=== PATIENT | male | born 1960 | race Caucasian/White ===

== ENCOUNTER 2017-02-23 15:20 | Emergency (ER) | payer OTHER ==
[2017-02-23 15:39] VITALS: TEMP 98.2
--- NOTE | 2017-02-23 16:20 | CPEKG ---
Heart Rate: 60 RR Interval: 1000 P-R Interval: 200 QRSD Interval: 102 QT Interval: 392 QTC Interval: 392 P [place]: 55 QRS [place]: -24 T Wave [place]: 51 EKG Severity - OTHERWISE NORMAL ECG - EKG Impression: SINUS RHYTHM EKG Impression: BORDERLINE LEFT AXIS DEVIATION Electronically Signed By: Conner Vargas 25-Feb-2017 14:26:53
--- NOTE | 2017-02-23 16:31 | EDPHY ---
HPI/HX/ROS/PE/MDM Narrative: CHIEF COMPLAINT: Chest pain HPI: This patient is a 56 year old male complaining of chest pain onset this morning around 9am, seven hours ago. He has associated shortness of breath, and feels as if he was "punching in the middle of the chest". The pain has been constant. He has significant family history for cardiac events and generally follows up with a student counselor, but has not been seen in one year. His last stress test was two years ago. He feels his current pain may be related to his workout this morning, but was concerned that it had not resolved and presents for evaluation. He generally takes medication for hypertension, but has not taken it for the last three days. He took one dose on the way to the emergency department this afternoon. REVIEW OF SYSTEMS: Aside from elements discussed in the HPI, a comprehensive 10-point review of systems was reviewed and is negative. PMH: Hypertension. SOCIAL HISTORY: Works in [employer]. . PHYSICAL EXAM: General:Patient is alert, in no acute distress. ENT:Eyes are normal to inspection. ENT inspection normal. Neck: Normal inspection. Full range of motion. Respiratory:No respiratory distress. Breath sounds normal bilaterally. Cardiovascular: Regular rate and rhythm. Strong peripheral pulses. Normal cap refill. Abdomen:The abdomen is nontender to palpation. There are no peritoneal signs. There are normal bowel sounds. Back: Normal to inspection. No tenderness to palpation. Skin: Normal color. No rash. Warm and dry. Extremities: Normal appearance. Full range of motion. Neuro: Oriented x3. Normal motor function. Normal sensory function. Portions of this note were transcribed by an ED scribe. I personally performed the history, physical exam, and medical decision making; and confirm the accuracy of the information in the transcribed note. ED Course: 56 year old male with family history of [place] presents with chest pain onset seven hours ago. Plan for EKG, chest x-ray, labs including CBC, BMP and Troponin. The 12 lead EKG was interpreted by myself. See hard copy and/or "tracemaster" electronic copy for interpretation. Chest x-ray negative for acute processes. Labs unremarkable. Plan to discharge home in good condition. He will follow up with his student counselor this week. MDM: This patient presents with chest pain that has been present constantly for at least seven hours, now with negative troponin, ECG and other labs. As such, he is very low risk for ACS. The etiology of his chest pain is unknown. I offered him admission to the hospital for further observation and workup but he declines. - Data Points Imaging Results: Imaging Impressions Chest X-Ray 02/23/17 16:23 Impression: Clear lungs. No acute process. Imaging: I viewed and interpreted images myself Laboratory Results: Laboratory Results 02/23/17 16:23 02/23/17 16:23 02/23/17 02/23/17 16:23 16:23 WBC 7.64 10^3/uL 10^3/uL (3.80-9.50) RBC 4.86 10^6/uL 10^6/uL (4.40-6.38) Hgb 15.0 g/dL g/dL (13.7-17.5) Hct 42.3 % % (40.0-51.0) MCV 87.0 fL fL (81.5-99.8) MCH 30.9 pg pg (27.9-34.1) MCHC 35.5 g/dL g/dL (32.4-36.7) RDW 12.4 % % (11.5-15.2) Plt Count 230 10^3/uL 10^3/uL (150-400) MPV 9.4 fL fL (8.7-11.7) Neut % (Auto) 54.1 % % (39.3-74.2) Lymph % (Auto) 33.0 % % (15.0-45.0) [place] % (Auto) 10.3 % % (4.5-13.0) Eos % (Auto) 1.3 % % (0.6-7.6) Baso % (Auto) 0.9 % % (0.3-1.7) Nucleat RBC Rel Count 0.0 % % (0.0-0.2) Absolute Neuts (auto) 4.13 10^3/uL 10^3/uL (1.70-6.50) Absolute Lymphs (auto) 2.52 10^3/uL 10^3/uL (1.00-3.00) Absolute Monos (auto) 0.79 10^3/uL 10^3/uL (0.30-0.80) Absolute Eos (auto) 0.10 10^3/uL 10^3/uL (0.03-0.40) Absolute Basos (auto) 0.07 10^3/uL 10^3/uL (0.02-0.10) Absolute Nucleated RBC 0.00 10^3/uL 10^3/uL (0-0.01) Immature Gran % 0.4 % % (0.0-1.1) Immature Gran # 0.03 10^3/uL 10^3/uL (0.00-0.10) Sodium 141 mEq/L mEq/L (134-144) Potassium 4.1 mEq/L mEq/L (3.5-5.2) Chloride 107 mEq/L mEq/L (97-110) Carbon Dioxide 22 mEq/l mEq/l (22-31) Anion Gap 12 mEq/L mEq/L (8-16) BUN 13 mg/dL mg/dL (7-23) Creatinine 1.0 mg/dL mg/dL (0.7-1.3) Estimated GFR > 60 Glucose 90 mg/dL mg/dL (70-100) Calcium 9.9 mg/dL mg/dL (8.5-10.4) Troponin I < 0.012 ng/mL ng/mL (0-0.034) General Time Seen by Provider: 02/23/17 16:14 Initial Vital Signs: Initial Vital Signs Temperature (C) 36.8 C 02/23/17 15:25 Heart Rate 65 02/23/17 15:25 Respiratory Rate 16 02/23/17 15:25 Blood Pressure 138/81 H 02/23/17 15:25 O2 Sat (%) 97 02/23/17 15:25 O2 Delivery Mode Room Air Allergies/Adverse Reactions: No Known Allergies Allergy (Unverified 02/23/17 15:32) Home Medications: Medication Instructions Recorded Aspirin [Aspirin 81mg (*)] 162 mg PO DAILY 02/23/17 Atorvastatin Calcium [Lipitor 40 40 mg PO 02/23/17 mg (*)] Levothyroxine [Synthroid 125 mcg 125 mcg PO DAILY06 02/23/17 (*)] Losartan Potassium [Cozaar 50 mg 50 mg PO 02/23/17 (*)] buPROPion [Wellbutrin] 100 mg PO 02/23/17 Departure - Departure Disposition: Home, Routine, Self-Care Clinical Impression: Chest pain Condition: Good Instructions: Chest Pain (ED) Additional Instructions: Follow-up with your primary doctor within 72 hours. Return to the Emergency Department for fever, chest pain, shortness of breath, increasing pain or other worsening of condition. Follow up with a student counselor for further testing, as soon as possible, within one week. As we discussed, it is impossible to fully rule out heart disease as the cause of your chest pain in the emergency department. We would be happy to reevaluate you and observe you in the hospital at any time. Referrals: CARDIOLOGY,[facility] [Edm Groups for Call Sched] - As per Instructions Report Scribed for: Max Phillips Report Scribed by: Odalys Quiles Date of Report: 02/23/17 Time of Report: 21:33
[2017-02-23 16:41] LABS: % IMMATURE GRANULYOCYTES 0.4 % (0.0-1.1); ABSOLUTE IMMATURE GRANULOCYTES 0.03 10^3/uL (0.00-0.10); ADD DIFF? NO; ADD MORPH? NO; ADD SCAN? NO; ATYPICAL LYMPHOCYTE FLAG 0 (0-99); FRAGMENT RBC FLAG 0 (0-99); HEMATOCRIT 42.3 % (40.0-51.0); LEFT SHIFT FLG 0 (0-99); LIPEMIA HEMOLYSIS FLAG 90 (0-99); MEAN CELL HEMOGLOBIN 30.9 pg (27.9-34.1); MEAN CELL HEMOGLOBIN CONCENTR. 35.5 g/dL (32.4-36.7); MEAN PLATELET VOLUME 9.4 fL (8.7-11.7); PLATELET CLUMPS FLAG 20 (0-99); PLATELET COUNT 230 10^3/uL (150-400); RED BLOOD CELL COUNT 4.86 10^6/uL (4.40-6.38); RED CELL DISTRIBUTION WIDTH 12.4 % (11.5-15.2)
[2017-02-23 17:04] LABS: ANION GAP 12 mEq/L (8-16); CALCIUM 9.9 mg/dL (8.5-10.4); CARBON DIOXIDE 22 mEq/l (22-31); CHLORIDE 107 mEq/L (97-110); GLOMERULAR FILTRATION RATE > 60; GLUCOSE 90 mg/dL (70-100); POTASSIUM 4.1 mEq/L (3.5-5.2); SODIUM 141 mEq/L (134-144)
[2017-02-23 17:16] LABS: TROPONIN I < 0.012 ng/mL (0-0.034)
[2017-02-23 17:42] VITALS: BP 135/90; PULSE 65; RESP 15; O2SAT 93
== END 2017-02-23 17:41 | disposition home or self-care (01) ==
DX: R07.9 Chest pain, unspecified (principal); I10 Essential (primary) hypertension; Z79.82 Long term (current) use of aspirin

== ENCOUNTER 2017-03-17 22:23 | Emergency (ER) | payer OTHER ==
[2017-03-17 22:29] VITALS: O2SAT 96
--- NOTE | 2017-03-17 22:39 | CPEKG ---
Heart Rate: 62 RR Interval: 968 P-R Interval: 196 QRSD Interval: 94 QT Interval: 404 QTC Interval: 411 P [place]: 54 QRS [place]: -29 T Wave [place]: 32 EKG Severity - OTHERWISE NORMAL ECG - EKG Impression: SINUS RHYTHM EKG Impression: BORDERLINE LEFT AXIS DEVIATION Electronically Signed By: Reinier Bach 18-Mar-2017 07:13:04
--- NOTE | 2017-03-17 23:05 | EDPHY ---
H & P Stated Complaint: CP since thursday, diaphoresis Time Seen by Provider: 03/17/17 22:51 HPI/ROS: Chief Complaint: Chest pain HPI: 56-year-old male who is been having intermittent chest pain for the last several weeks. Has had constant pain for the last 3 days. At worst is a 2 in 10. It is described as a "week" in the center of his chest. Is not radiating. Was seen here on the of last month and had normal ECG, troponin and chest x -ray. He was seen by Dr. Ledezma 4 days ago. He had a heart scan today and is awaiting those results. Also had some blood work today. He is very concerned because brother had an [place] when he is 49 years old his father of a heart attack many 62 years old. Denies any shortness of breath. No nausea or vomiting. Pain is constant. There are no aggravating or alleviating factors. There is no anginal equivalents. Is not exertional. It is not positional. Is been a 2/10 since he woke up this morning and unchanging. ROS: 10 point Review of Systems is negative except as noted in the HPI. PMH: Hyperlipidemia Social History: No smoking, no alcohol, no recreational drug use Family History: Brother had an [place] at the age of 49, father of an [place] at 62 years of age Physical Exam: Gen: Awake, Alert, No Distress HEENT: Nose: no rhinorrhea Eyes: PERRLA, EOMI Mouth: Moist mucosa Neck: Supple, no JVD Chest: nontender, lungs clear to auscultation Heart: S1, S2 normal, no murmur Abd: Soft, non-tender, no guarding Back: no CVA tenderness, no midline tenderness Ext: no edema, non-tender Skin: no rash Neuro: CN II-XII intact, Sensation grossly intact, Strength 5/5 in bilateral upper and lower extremities - Personal History Current Tetanus/Diphtheria Vaccine: Unsure Current Tetanus Diphtheria and Acellular Pertussis (TDAP): Unsure - Medical/Surgical History Hx Asthma: No Hx Chronic Respiratory Disease: No Hx Diabetes: No Hx Cardiac Disease: No Hx Renal Disease: No Hx Cirrhosis: No Hx Alcoholism: No Hx HIV/AIDS: No Hx Splenectomy or Spleen Trauma: No Other PMH: +family hx AMI (father,brother). HTN, high cholesterol - Social History Smoking Status: Never smoked Constitutional: Initial Vital Signs Temperature (C) 36.9 C 03/17/17 22:25 Heart Rate 67 03/17/17 22:25 Respiratory Rate 18 03/17/17 22:25 Blood Pressure 134/90 H 03/17/17 22:25 O2 Sat (%) 96 03/17/17 22:25 O2 Delivery Mode Room Air Allergies/Adverse Reactions: No Known Allergies Allergy (Unverified 02/23/17 15:32) Home Medications: Medication Instructions Recorded Aspirin [Aspirin 81mg (*)] 162 mg PO DAILY 02/23/17 Atorvastatin Calcium [Lipitor 40 40 mg PO 02/23/17 mg (*)] Levothyroxine [Synthroid 125 mcg 125 mcg PO DAILY06 02/23/17 (*)] Losartan Potassium [Cozaar 50 mg 50 mg PO 02/23/17 (*)] buPROPion [Wellbutrin] 100 mg PO 02/23/17 ACCUTANE 03/17/17 Medical Decision Making - Diagnostics EKG Interpretation: ECG time 10:38 p.m., sinus rhythm with a rate of 62. There is borderline left axis deviation, there are normal intervals, no acute ST or T-wave changes. Impression: Normal ECG, no change from his ECG of 02/23/2017. ED Course/Re-evaluation: 56-year-old male with a history of persistent chest pain for the last couple of weeks. He has been seen by cardiology. He had a restrained fine test yesterday for which she is waiting for the results. ECG is unchanged from prior and is negative, troponin is negative. Pain is been persistent all day. Is not sound like anginal equivalent. Plan will be for discharge having follow up with his physician advisor Dr. Ledezma. - Data Points Laboratory Results: Laboratory Results 03/17/17 22:36 03/17/17 22:36 03/17/17 03/17/17 22:36 22:36 WBC 8.70 10^3/uL 10^3/uL (3.80-9.50) RBC 5.21 10^6/uL 10^6/uL (4.40-6.38) Hgb 16.1 g/dL g/dL (13.7-17.5) Hct 46.0 % % (40.0-51.0) MCV 88.3 fL fL (81.5-99.8) MCH 30.9 pg pg (27.9-34.1) MCHC 35.0 g/dL g/dL (32.4-36.7) RDW 12.2 % % (11.5-15.2) Plt Count 262 10^3/uL 10^3/uL (150-400) MPV 9.6 fL fL (8.7-11.7) Neut % (Auto) 45.5 % % (39.3-74.2) Lymph % (Auto) 41.4 % % (15.0-45.0) [place] % (Auto) 10.2 % % (4.5-13.0) Eos % (Auto) 2.0 % % (0.6-7.6) Baso % (Auto) 0.6 % % (0.3-1.7) Nucleat RBC Rel Count 0.0 % % (0.0-0.2) Absolute Neuts (auto) 3.96 10^3/uL 10^3/uL (1.70-6.50) Absolute Lymphs (auto) 3.60 10^3/uL H 10^3/uL (1.00-3.00) Absolute Monos (auto) 0.89 10^3/uL H 10^3/uL (0.30-0.80) Absolute Eos (auto) 0.17 10^3/uL 10^3/uL (0.03-0.40) Absolute Basos (auto) 0.05 10^3/uL 10^3/uL (0.02-0.10) Absolute Nucleated RBC 0.00 10^3/uL 10^3/uL (0-0.01) Immature Gran % 0.3 % % (0.0-1.1) Immature Gran # 0.03 10^3/uL 10^3/uL (0.00-0.10) Sodium 139 mEq/L mEq/L (134-144) Potassium 4.2 mEq/L mEq/L (3.5-5.2) Chloride 102 mEq/L mEq/L (97-110) Carbon Dioxide 25 mEq/l mEq/l (22-31) Anion Gap 12 mEq/L mEq/L (8-16) BUN 14 mg/dL mg/dL (7-23) Creatinine 1.0 mg/dL mg/dL (0.7-1.3) Estimated GFR > 60 Glucose 91 mg/dL mg/dL (70-100) Calcium 9.8 mg/dL mg/dL (8.5-10.4) Troponin I < 0.012 ng/mL ng/mL (0.000-0.034) Departure - Departure Disposition: Home, Routine, Self-Care Clinical Impression: Chest pain Condition: Good Instructions: Chest Pain (ED) Additional Instructions: Follow up with your physician advisor in 2-3 days for re-evaluation. Return to the emergency depart for increasing chest pain, shortness of breath, fevers, chills, cough, abdominal pain, or any other concerns. Referrals: NONE *PRIMARY CARE P,. [Primary Care Provider] - As per Instructions Quirino Ledezma MD [Medical Doctor] - As per Instructions
[2017-03-17 23:13] LABS: % IMMATURE GRANULYOCYTES 0.3 % (0.0-1.1); ABSOLUTE IMMATURE GRANULOCYTES 0.03 10^3/uL (0.00-0.10); ADD DIFF? NO; ADD MORPH? NO; ADD SCAN? NO; ATYPICAL LYMPHOCYTE FLAG 0 (0-99); FRAGMENT RBC FLAG 0 (0-99); HEMOGLOBIN 16.1 g/dL (13.7-17.5); LEFT SHIFT FLG 0 (0-99); LIPEMIA HEMOLYSIS FLAG 90 (0-99); MEAN CELL HEMOGLOBIN 30.9 pg (27.9-34.1); MEAN CELL VOLUME 88.3 fL (81.5-99.8); MEAN PLATELET VOLUME 9.6 fL (8.7-11.7); PLATELET CLUMPS FLAG 10 (0-99); PLATELET COUNT 262 10^3/uL (150-400); RED BLOOD CELL COUNT 5.21 10^6/uL (4.40-6.38); RED CELL DISTRIBUTION WIDTH 12.2 % (11.5-15.2)
[2017-03-17 23:17] LABS: ANION GAP 12 mEq/L (8-16); CALCIUM 9.8 mg/dL (8.5-10.4); CARBON DIOXIDE 25 mEq/l (22-31); CHLORIDE 102 mEq/L (97-110); GLOMERULAR FILTRATION RATE > 60; GLUCOSE 91 mg/dL (70-100); POTASSIUM 4.2 mEq/L (3.5-5.2); SODIUM 139 mEq/L (134-144)
[2017-03-17 23:28] LABS: TROPONIN I < 0.012 ng/mL (0.000-0.034)
[2017-03-18 00:58] VITALS: BP 139/73; PULSE 62; RESP 16; TEMP 97.9
== END 2017-03-18 00:56 | disposition home or self-care (01) ==
DX: R07.9 Chest pain, unspecified (principal); I10 Essential (primary) hypertension

== ENCOUNTER 2017-03-18 20:50 | Observation (INO) | payer OTHER ==
--- NOTE | 2017-03-18 21:10 | CPEKG ---
Heart Rate: 61 RR Interval: 984 P-R Interval: 192 QRSD Interval: 104 QT Interval: 408 QTC Interval: 411 P [place]: 44 QRS [place]: -33 T Wave [place]: 43 EKG Severity - OTHERWISE NORMAL ECG - EKG Impression: SINUS RHYTHM EKG Impression: LEFT AXIS DEVIATION EKG Impression: Unchanged from previous Electronically Signed By: Nimesh Salazar 18-Mar-2017 21:16:54
[2017-03-18] MEDS ORDERED: NS 1,000 ML IV ONE (21:13)
[2017-03-18] MEDS ORDERED: NITROGLYCERIN 0.4 MG BTL SL PRN (21:13)
--- NOTE | 2017-03-18 21:16 | EDPHY ---
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 He was seen here on the of last month and had a negative workup and discharged home. He saw Dr. Ledezma yesterday and had a cardiac CT that revealed some calcification. He was seen here in the ER last night and had a negative workup again and was discharged home. Today Dr. Ledezma called him to give him the results of his CT scan he expressed to him that he was still having mild pain 09/12. Dr. Ledezma recommended he come here to the ER to get admitted and will perform catheterization tomorrow. Denies lightheadedness, nausea, diaphoresis or palpitations. He takes full-strength aspirin daily. He has a brother and father who both early of heart attacks. REVIEW OF SYSTEMS: Constitutional: denies: chills, fever, recent illness, recent injury EENTM: denies: blurred vision, double vision, nose congestion Respiratory: denies: cough, shortness of breath Cardiac: See HPI Gastrointestinal/Abdominal: denies: abdominal pain, diarrhea, nausea, vomiting, blood streaked stools Genitourinary: denies: dysuria, frequency, hematuria, pain Musculoskeletal: denies: joint pain, muscle pain Skin: denies: lesions, rash, jaundice, bruising Neurological: denies: headache, numbness, paresthesia, tingling, dizziness, weakness Hematologic/Lymphatic: denies: blood clots, easy bleeding, easy bruising Immunologic/allergic: denies: HIV/AIDS, transplant EXAM: GENERAL: Well-appearing, well-nourished and in no acute distress. HEAD: Atraumatic, normocephalic. EYES: Pupils equal round and reactive to light, extraocular movements intact, sclera anicteric, conjunctiva are normal. ENT: TMs normal, nares patent, oropharynx clear without exudates. Moist mucous membranes. NECK: Normal range of motion, supple without lymphadenopathy or JVD. LUNGS: Breath sounds clear to auscultation bilaterally and equal. No wheezes rales or rhonchi. HEART: Regular rate and rhythm without murmurs, rubs or gallops. ABDOMEN: Soft, nontender, normoactive bowel sounds. No guarding, no rebound. No masses appreciated. BACK: No CVA tenderness, no spinal tenderness, step-offs or deformities EXTREMITIES: Normal range of motion, no pitting or edema. No clubbing or cyanosis. NEUROLOGICAL: Cranial nerves II through XII grossly intact. Normal speech, normal gait. 5/5 strength, normal movement in all extremities, normal sensation PSYCH: Normal mood, normal affect. SKIN: Warm, dry, normal turgor, no visible rashes or lesions. Source: Patient Exam Limitations: No limitations - Personal History Current Tetanus/Diphtheria Vaccine: Unsure Current Tetanus Diphtheria and Acellular Pertussis (TDAP): Unsure - Medical/Surgical History Hx Asthma: No Hx Chronic Respiratory Disease: No Hx Diabetes: No Hx Cardiac Disease: No Hx Renal Disease: No Hx Cirrhosis: No Hx Alcoholism: No Hx HIV/AIDS: No Hx Splenectomy or Spleen Trauma: No Other PMH: +family hx AMI (father,brother). HTN, high cholesterol. appy. l knee replaced - Family History Significant Family History: No pertinent family hx - Social History Smoking Status: Never smoked Alcohol Use: Sober Drug Use: None Constitutional: Initial Vital Signs Temperature (C) 36.6 C 03/18/17 20:56 Heart Rate 64 03/18/17 20:56 Respiratory Rate 18 03/18/17 20:56 Blood Pressure 128/85 H 03/18/17 20:56 O2 Sat (%) 99 03/18/17 20:56 O2 Delivery Mode Room Air O2 (L/minute) 2 Allergies/Adverse Reactions: No Known Allergies Allergy (Unverified 02/23/17 15:32) Home Medications: Medication Instructions Recorded Atorvastatin Calcium [Lipitor 40 40 mg PO HS 02/23/17 mg (*)] Isotretinoin [Accutane] 40 mg PO MOTH 03/17/17 Aspirin [Aspirin 325 mg (*)] 325 mg PO DAILY 03/18/17 Docusate Sodium [Colace 100 MG (*)] 100 mg PO BID PRN 03/18/17 Herbals/Supplements -Info Only 1 ea PO DAILY 03/18/17 Ibuprofen [Motrin (*)] 600 mg PO DAILY PRN 03/18/17 Levothyroxine [Synthroid 75 mcg 75 mcg PO DAILY06 03/18/17 (*)] Losartan Potassium [Cozaar] 100 mg PO DAILY 03/18/17 Multivitamins [Multivitamin (*)] 1 each PO DAILY 03/18/17 buPROPion SR [Wellbutrin 150mg SR 150 mg PO DAILY 03/18/17 (*)] Ranitidine HCl 150 mg PO BID #60 tablet 03/20/17 Medical Decision Making - Diagnostics EKG Interpretation: An EKG obtained and was read and documented in trace view. Please see trace view for full reading and report. Sinus rhythm, no acute ischemic changes ED Course/Re-evaluation: 10:00 p.m. the patient's chest pain is resolved with nitroglycerin. I will admit as planned. Also his lipase is quite elevated. He denies epigastric pain or tenderness. I will order an ultrasound. 10:10 p.m. I spoke with Dr. Weston who accepted admission. Differential Diagnosis: Partial list of the Differential diagnosis considered include but were not limited to; chest pain, esophageal spasm, biliary disease, pancreatic disease and although unlikely based on the history and physical exam, I also considered sepsis, PE, ST elevation IA, dissection. - Data Points Laboratory Results: Laboratory Results 03/19/17 03:51 03/19/17 03:51 Medications Given: Discontinued Medications Hydrocodone Bitart/Acetaminophen ([place] 5/325) 1 - 2 tab PO Q4HRS PRN PRN Reason: Pain, Moderate Stop: 03/29/17 15:28 Last Admin: 03/19/17 20:42 Dose: 2 tab Aspirin Buffered (Aspirin Ec) 325 mg PO ONCALL ONE Stop: 03/19/17 09:27 Last Admin: 03/19/17 17:42 Dose: Not Given Atorvastatin Calcium (Lipitor) 40 mg PO HS AURELIO Stop: 09/15/17 20:59 Last Admin: 03/19/17 20:42 Dose: 40 mg Bupropion HCl (Wellbutrin Sr) 150 mg PO DAILY AURELIO Stop: 09/15/17 08:59 Last Admin: 03/20/17 08:12 Dose: 150 mg Diazepam (Valium) 5 mg PO ONCALL ONE Stop: 03/19/17 09:27 Last Admin: 03/19/17 17:42 Dose: Not Given Diphenhydramine HCl (Benadryl) 25 mg PO ONCALL ONE Stop: 03/19/17 09:27 Last Admin: 03/19/17 17:42 Dose: Not Given Sodium Chloride (Ns) 1,000 mls @ 0 mls/hr IV EDNOW ONE; Wide Open PRN Reason: Protocol Stop: 03/18/17 21:14 Last Admin: 03/18/17 21:20 Dose: 1,000 mls Levothyroxine Sodium (Synthroid) 75 mcg PO DAILY06 AURELIO Stop: 09/15/17 05:59 Last Admin: 03/20/17 06:02 Dose: 75 mcg Losartan Potassium (Cozaar) 100 mg PO DAILY AURELIO Stop: 09/15/17 08:59 Last Admin: 03/20/17 08:12 Dose: 100 mg Nitroglycerin (Nitrostat) 0.4 mg SL Q5M PRN PRN Reason: Chest Pain Stop: 03/18/17 21:24 Last Admin: 03/18/17 21:21 Dose: 0.4 mg Departure - Departure Disposition: [facility] Inpatient Acute Clinical Impression: Chest pain Qualifiers: Chest pain type: other chest pain Qualified Code(s): R07.89 - Other chest pain Condition: Good
[2017-03-18 21:23] LABS: % IMMATURE GRANULYOCYTES 0.3 % (0.0-1.1); ABSOLUTE IMMATURE GRANULOCYTES 0.02 10^3/uL (0.00-0.10); ADD DIFF? NO; ADD MORPH? NO; ADD SCAN? NO; ATYPICAL LYMPHOCYTE FLAG 0 (0-99); FRAGMENT RBC FLAG 0 (0-99); HEMATOCRIT 43.3 % (40.0-51.0); HEMOGLOBIN 15.2 g/dL (13.7-17.5); LEFT SHIFT FLG 0 (0-99); LIPEMIA HEMOLYSIS FLAG 90 (0-99); MEAN CELL HEMOGLOBIN 30.6 pg (27.9-34.1); MEAN CELL HEMOGLOBIN CONCENTR. 35.1 g/dL (32.4-36.7); MEAN CELL VOLUME 87.3 fL (81.5-99.8); MEAN PLATELET VOLUME 9.3 fL (8.7-11.7); PLATELET CLUMPS FLAG 10 (0-99); PLATELET COUNT 233 10^3/uL (150-400); RED BLOOD CELL COUNT 4.96 10^6/uL (4.40-6.38)
[2017-03-18 21:38] LABS: ALANINE AMINOTRANSFERASE 45 IU/L (21-72); ALBUMIN 4.3 g/dL (3.5-5.0); ALKALINE PHOSPHATASE 53 IU/L (38-126); ANION GAP 14 mEq/L (8-16); ASPARTATE AMINOTRANSFERASE 26 IU/L (17-59); BILIRUBIN,TOTAL 0.6 mg/dL (0.1-1.4); BILIRUBIN-CONJUGATED 0.3 mg/dL (0.0-0.5); BILIRUBIN-UNCONJUGATED 0.3 mg/dL (0.0-1.1); CALCIUM 9.9 mg/dL (8.5-10.4); CARBON DIOXIDE 23 mEq/l (22-31); CHLORIDE 102 mEq/L (97-110); CREATININE 0.9 mg/dL (0.7-1.3); GLOMERULAR FILTRATION RATE > 60; GLUCOSE 108 mg/dL (70-100); POTASSIUM 3.7 mEq/L (3.5-5.2); SODIUM 139 mEq/L (134-144)
[2017-03-18 21:49] LABS: TROPONIN I < 0.012 ng/mL (0.000-0.034)
[2017-03-18] MEDS ORDERED: ONDANSETRON DISINTEGRATING 4 MG TAB PO PRN (22:54)
[2017-03-18] MEDS ORDERED: ONDANSETRON 4 MG/2 ML VIAL IVP PRN (22:54)
[2017-03-18] MEDS ORDERED: ACETAMINOPHEN 325 MG TAB PO PRN (22:54)
--- NOTE | 2017-03-18 22:59 | PDGENHP ---
History and Physical - Chief Complaint Chest pain - History of Present Illness 56 yo M w/ hx of HTN and HLD presents with several weeks of chest pain. Patient first noticed the pain 2 weeks ago. He describes it as mid-sternal, non- radiation, 2-4/10 severity pain without significant associated symptoms. He notes no relation to exertion and possible mild improvement with rest. He did notice improvement with nitroglycerin upon arrival in the ED. He was evaluated in the ED for the same symptoms a few weeks ago and sent home after normal ECG and negative enzymes. He spoke with his date night caregiver Dr. Ledezma who recommended he come in for a likely angiogram tomorrow. History Information - Allergies/Home Medication List Allergies/Adverse Reactions: No Known Allergies Allergy (Unverified 02/23/17 15:32) Home Medications: Atorvastatin Calcium [Lipitor 40 mg (*)] 40 mg PO HS 02/23/17 [Last Taken ] Isotretinoin [Accutane] 40 mg PO MOTH 03/17/17 [Last Taken 03/16/17] Aspirin [Aspirin 325 mg (*)] 325 mg PO DAILY 03/18/17 [Last Taken 03/18/17] Docusate Sodium [Colace 100 MG (*)] 100 mg PO BID PRN 03/18/17 [Last Taken 03/17] Herbals/Supplements -Info Only 1 ea PO DAILY 03/18/17 [Last Taken 03/18/17] Ibuprofen [Motrin (*)] 600 mg PO DAILY PRN 03/18/17 [Last Taken 03/17/17] Levothyroxine [Synthroid 75 mcg (*)] 75 mcg PO DAILY06 03/18/17 [Last Taken ] Losartan Potassium [Cozaar] 100 mg PO DAILY 03/18/17 [Last Taken 03/17/17] Multivitamins [Multivitamin (*)] 1 each PO DAILY 03/18/17 [Last Taken 03/17/17] buPROPion SR [Wellbutrin 150mg SR (*)] 150 mg PO DAILY 03/18/17 [Last Taken ] I have personally reviewed and updated: family history, medical history - Past Medical History hypertension, hyperlipidemia - Surgical History Additional surgical history: L TKA - Family History Positive for: CAD - Social History Smoking Status: Never smoked Alcohol Use: Sober Drug Use: None Review of Systems ROS: 10pt was reviewed & negative except for what was stated in HPI & below Physical Exam Temp Pulse Resp BP Pulse Ox 36.6 C 64 18 128/85 H 99 03/18/17 20:56 03/18/17 20:56 03/18/17 20:56 03/18/17 20:56 03/18/17 21:09 Constitutional: no apparent distress, appears nourished Eyes: PERRL, EOMI Ears, Nose, Mouth, Throat: moist mucous membranes, no oral mucosal ulcers Cardiovascular: regular rate and rhythym, no murmur, rub, or gallop, edema ( Trace b/l LUCIANA) Respiratory: no respiratory distress, clear to auscultation Gastrointestinal: normoactive bowel sounds, soft, non-tender abdomen Skin: warm, no rashes or abrasions Musculoskeletal: full muscle strength, no muscle tenderness Neurologic: AAOx3, CN II-XII Intact Psychiatric: interacting appropriately, not anxious Lab Data & Imaging Review 03/18/17 21:16 03/18/17 21:16 WBC 7.78 10^3/uL (3.80-9.50) 03/18/17 21:16 RBC 4.96 10^6/uL (4.40-6.38) 03/18/17 21:16 Hgb 15.2 g/dL (13.7-17.5) 03/18/17 21:16 Hct 43.3 % (40.0-51.0) 03/18/17 21:16 MCV 87.3 fL (81.5-99.8) 03/18/17 21:16 MCH 30.6 pg (27.9-34.1) 03/18/17 21:16 MCHC 35.1 g/dL (32.4-36.7) 03/18/17 21:16 RDW 12.0 % (11.5-15.2) 03/18/17 21:16 Plt Count 233 10^3/uL (150-400) 03/18/17 21:16 MPV 9.3 fL (8.7-11.7) 03/18/17 21:16 Neut % (Auto) 49.1 % (39.3-74.2) 03/18/17 21:16 Lymph % (Auto) 37.8 % (15.0-45.0) 03/18/17 21:16 [place] % (Auto) 10.4 % (4.5-13.0) 03/18/17 21:16 Eos % (Auto) 1.8 % (0.6-7.6) 03/18/17 21:16 Baso % (Auto) 0.6 % (0.3-1.7) 03/18/17 21:16 Nucleat RBC Rel Count 0.0 % (0.0-0.2) 03/18/17 21:16 Absolute Neuts (auto) 3.82 10^3/uL (1.70-6.50) 03/18/17 21:16 Absolute Lymphs (auto) 2.94 10^3/uL (1.00-3.00) 03/18/17 21:16 Absolute Monos (auto) 0.81 10^3/uL (0.30-0.80) H 03/18/17 21:16 Absolute Eos (auto) 0.14 10^3/uL (0.03-0.40) 03/18/17 21:16 Absolute Basos (auto) 0.05 10^3/uL (0.02-0.10) 03/18/17 21:16 Absolute Nucleated RBC 0.00 10^3/uL (0-0.01) 03/18/17 21:16 Immature Gran % 0.3 % (0.0-1.1) 03/18/17 21:16 Immature Gran # 0.02 10^3/uL (0.00-0.10) 03/18/17 21:16 D-Dimer < 0.27 ug/mLFEU (0.00-0.50) 03/18/17 21:16 Sodium 139 mEq/L (134-144) 03/18/17 21:16 Potassium 3.7 mEq/L (3.5-5.2) 03/18/17 21:16 Chloride 102 mEq/L (97-110) 03/18/17 21:16 Carbon Dioxide 23 mEq/l (22-31) 03/18/17 21:16 Anion Gap 14 mEq/L (8-16) 03/18/17 21:16 BUN 13 mg/dL (7-23) 03/18/17 21:16 Creatinine 0.9 mg/dL (0.7-1.3) 03/18/17 21:16 Estimated GFR > 60 03/18/17 21:16 Glucose 108 mg/dL (70-100) H 03/18/17 21:16 Calcium 9.9 mg/dL (8.5-10.4) 03/18/17 21:16 Total Bilirubin 0.6 mg/dL (0.1-1.4) 03/18/17 21:16 Conjugated Bilirubin 0.3 mg/dL (0.0-0.5) 03/18/17 21:16 Unconjugated Bilirubin 0.3 mg/dL (0.0-1.1) 03/18/17 21:16 AST 26 IU/L (17-59) 03/18/17 21:16 ALT 45 IU/L (21-72) 03/18/17 21:16 Alkaline Phosphatase 53 IU/L (38-126) 03/18/17 21:16 Troponin I < 0.012 ng/mL (0.000-0.034) 03/18/17 21:16 Total Protein 7.0 g/dL (6.3-8.2) 03/18/17 21:16 Albumin 4.3 g/dL (3.5-5.0) 03/18/17 21:16 Lipase 911 IU/L (23-300) H 03/18/17 21:16 EKG Interpretation: Positive for: normal sinsus rhythm, NS ST wave abnormalities Assessment & Plan Assessment: 56 yo M w/ hx of HTN and HLD presenting with chest pain. Plan: 1. Chest pain - Both typical (location, relief with NTG) and atypical (constant , not associated w/ exertion) features. Patient does have significant family hx (brother and father both with MIs), HTN, and HLD. He is a non-smoker. He reports a nuclear stress study 3 years ago that was normal. He recently established care with date night caregiver Dr. Ledezma who recommended patient be admitted for likely cardiac catheterization tomorrow. I suspect there may be some component of anxiety contributing to symptoms noting patient's hx of anxiety and significant concerns about his family hx. - Admit for observation - Trend enzymes - Monitor on telemetry - NPO after MN for possible cath tomorrow 2. HTN - On Losartan as outpatient, will continue 3. HLD - On atorvastatin 4. Hypothyroid - Continue LTX 5. Anxiety - Continue Wellbutrin Diet - NPO @ PR Ppx - SCDs Code - Full Dispo - Admit to observation status
[2017-03-19 04:48] LABS: % IMMATURE GRANULYOCYTES 0.6 % (0.0-1.1); ABSOLUTE IMMATURE GRANULOCYTES 0.04 10^3/uL (0.00-0.10); ADD DIFF? NO; ADD MORPH? NO; ADD SCAN? NO; ATYPICAL LYMPHOCYTE FLAG 20 (0-99); FRAGMENT RBC FLAG 0 (0-99); HEMATOCRIT 39.6 % (40.0-51.0); HEMOGLOBIN 13.8 g/dL (13.7-17.5); LEFT SHIFT FLG 0 (0-99); LIPEMIA HEMOLYSIS FLAG 90 (0-99); MEAN CELL HEMOGLOBIN CONCENTR. 34.8 g/dL (32.4-36.7); MEAN PLATELET VOLUME 9.6 fL (8.7-11.7); PLATELET CLUMPS FLAG 10 (0-99); PLATELET COUNT 199 10^3/uL (150-400); RED BLOOD CELL COUNT 4.45 10^6/uL (4.40-6.38)
[2017-03-19 05:06] LABS: ANION GAP 10 mEq/L (8-16); CALCIUM 9.6 mg/dL (8.5-10.4); CARBON DIOXIDE 25 mEq/l (22-31); CHLORIDE 105 mEq/L (97-110); GLOMERULAR FILTRATION RATE > 60; GLUCOSE 92 mg/dL (70-100); POTASSIUM 4.2 mEq/L (3.5-5.2); SODIUM 140 mEq/L (134-144)
[2017-03-19 05:12] LABS: TROPONIN I < 0.012 ng/mL (0.000-0.034)
[2017-03-19] MEDS ORDERED: NON-FORMULARY NEW DRUG (Losartan Potassium [Cozaar] 100 MG) PO SCH (09:00)
[2017-03-19] MEDS ORDERED: ASPIRIN EC 325 MG TAB PO ONE (09:26)
[2017-03-19] MEDS ORDERED: diphenhydrAMINE 25 MG CAP PO ONE ×2 (09:26→12:53)
[2017-03-19] MEDS ORDERED: TEMAZEPAM 15 MG CAP PO PRN (09:26)
[2017-03-19] MEDS ORDERED: DIAZEPAM 5 MG TAB PO ONE (09:26)
[2017-03-19] MEDS ORDERED: NITROGLYCERIN 0.4 MG BTL SL PRN (09:26)
[2017-03-19] MEDS: LEVOTHYROXINE 75 MCG TAB PO SCH (09:41)
[2017-03-19] MEDS: buPROPion SR 150 MG TAB PO SCH (09:41)
[2017-03-19] MEDS: LOSARTAN POTASSIUM 50 MG TAB PO SCH (09:42)
[2017-03-19 10:32] LABS: CHOLESTEROL 126 mg/dL (140-220); CHOLESTEROL/HDL RATIO 4.34 RATIO (1.00-4.97); HIGH DENSITY LIPOPROTEIN 29 mg/dL (40-65); LDL/HDL RATIO 2.03 RATIO (1.00-3.64); LOW DENSITY LIPOPROTEIN 59 mg/dL (80-100); NON-HIGH DENSITY LIPOPROTEIN 97 mg/dL (90-129); TRIGLYCERIDE 194 mg/dL (40-150); VERY LOW DENSITY LIPOPROTEINS 38 mg/dL (8-25)
--- NOTE | 2017-03-19 12:50 | PDCARPN ---
Cardiology Progress Note Chief Complaint: cp/ strong fhx of CAD Assessment/Plan: Assessment: 56-y/o M with PMH dyslipidemia, htn, admitted with cp starting about 3 weeks ago. #. cp: somewhat concerning for angina as it was relieved with NTG we reviewed options and pt is agreeable to [facility] for further evaluation R/B/A reviewed #. htn: on Losartan BP mildly elevated currently which may be situational will follow #. dyslipidemia: LDL 59/ continue Atorvastatin #. LUCIANA: he reports extensive workup for L>R LUCIANA which started after TKA in 2008 and diagnosed at lymphedema in setting of cp and edema, will obtain screening echo Plan: - [facility] today 03/19/17 12:46 03/19/17 12:56 Subjective: Currently has mild 1/10 cp. No radiation or associated dyspnea/diaphoresis. Describes it as midsternal. PMH: hlp, htn, lymphedema PSH: L TKA in 2008 with redo in 2010 FH: Brother CABG age 48 (he is 4 years older). Father with CAD age 62. SocH: occ EtOH, nonsmoker ROS: + LUCIANA, + stress Reviewed/Discussed With: hospitalist Objective: Vital Signs (8 Hrs) Temp Pulse Resp BP Pulse Ox 03/19/17 12:28 58 L 14 140/75 H 99 03/19/17 07:45 97.8 F 52 L 12 126/80 H 97 Intake/Output (24 Hrs) 03/18/17 03/19/17 03/20/17 05:59 05:59 05:59 Intake Total 1300 Balance 1300 Intake: Oral (ml) 300 IV Infused (ml) 1000 Other: Weight 84.64 kg Number of Voids Toilet 1 Result Diagrams: 03/19/17 03:51 03/19/17 03:51 Cardiac Labs: Cardiac Lab Results (72 Hrs) 03/19/17 03:51 Troponin I < 0.012 EKG: SR with LAFB, LVH - Physical Exam Constitutional: healthy appearing, no apparent distress Eyes: PERRL Ears, Nose, Mouth, Throat: moist mucous membranes Cardiovascular: regular rate and rhythm, no murmurs Respiratory: clear to auscultate bilat, no crackles Gastrointestinal: normoactive bowel sounds, no tenderness Genitourinary: No alicea in urethra Skin: no rashes, no abrasions, other (bilateral L>R ankle edema) Neurologic: AAOx3 Psychiatric: cooperative, interactive ICD10 Worksheet Patient Problems: Problems Problem Status Onset Chest pain Acute
[2017-03-19] MEDS ORDERED: DIAZEPAM 5 MG TAB ONE (12:53)
[2017-03-19] MEDS ORDERED: ASPIRIN 325 MG TAB ONE (12:53)
[2017-03-19] MEDS ORDERED: VERAPAMIL 5 MG/2 ML VIAL ONE (13:45)
[2017-03-19] MEDS ORDERED: fentaNYL 100 MCG/2 ML INJ ONE (13:45)
[2017-03-19] MEDS ORDERED: LIDOCAINE 1% 300 MG/30 ML SDV ONE (13:45)
[2017-03-19] MEDS ORDERED: HEPARIN 10,000 UNIT/10 ML MDV ONE (13:45)
[2017-03-19] MEDS ORDERED: MIDAZOLAM 2 MG/2 ML VIAL ONE (13:45)
[2017-03-19] MEDS ORDERED: IOPAMIDOL (ISOVUE-370) 150 ML BTL IV ONE (13:46)
[2017-03-19] MEDS ORDERED: NITROGLYCERIN 1,500 MCG/15 ML VIAL MISC ONE (14:47)
--- NOTE | 2017-03-19 15:23 | PDDXCAT ---
Diagnostic Cath Note - . Date: 03/19/17 Building Associate: Jorden Indication: other (Chest pain, risk factors for CAD, abnormal coronary calcium score.) - Procedure Access: right wrist - Materials Left Heart Cath materials: other (Sightseer, JL-3.5, AL-1, and Pigtail) - Findings-Left Heart Catheterization LM: Short, normal. LAD: Mild irregularities. Siteseer catheter would not engage the left main. A JL 3.5 subselected into the proximal LAD causing coronary vasospasm. No associated chest discomfort or ECG changes. By the time an AL-1 was engaged in the left main to administer coronary nitroglycerin, the spasm had spontaneously resolved. LCX: Mild irregularities. Ectasia in the midportion. Proximal 40% stenosis at origin of high OM-1. RCA: Mild irregularities. EDP: 19 mmHg LVEF: 60% Wall motion: Normal. Complications: None Estimated blood loss: <50ml Closure method: TR Band Assessment: 1) Normal LV systolic function. 2) Yti-jonq-oebuchrl CAD. Patient Problems: Problems Problem Status Onset Chest pain Acute
[2017-03-19] MEDS ORDERED: HYDROCODONE/APAP 5/325 TAB PO PRN (15:29)
[2017-03-19] MEDS ORDERED: ATROPINE SULFATE 1 MG/10 ML SYR IVP PRN (15:29)
--- NOTE | 2017-03-19 15:29 | ECHO ---
[id number] + + [address] : : [place] [address] : : [phone] + + Adult Echocardiographic Report + --------+ :Name: BETSY CANASpatriadimas Date: 03/19/2017 10:09 AM : : Hospital Admission Number: [id number] Locat ion: 218: :: 1960 Gender: Male Height: 70 in : :Age: 56 yrs Race: WH Weight: 186 l b : :Reason For Study: Eval LV Fx : : BSA: 2.0 mete rs2 : :History: Edema/CP : + --------+ MMode/2D Measurements \T\ Calculations IVSd: 1.0 cm LVIDd: 4.6 cm FS: 43.6 % Ao root diam: 3.6 cm LVPWd: 1.1 cm LVIDs: 2.6 cm EDV(Teich): 99.7 ml ACS: 2.3 cm ESV(Teich): 25.1 ml EF(Teich): 74.9 % Normal Measurement Values: + + :LVIDd (3.5-5.7cm) IVSd (0.6-1.1cm) LVPWd (0.6-1.1cm) Aortic Root (2.0-3.7cm)Left Atrium (1.5-4.0cm): :LV Vol(d) (76-115ml) LV Vol(s) (29-48ml) Ejec Fraction (50-65%)PV Yinka (0.6- 1.2m/s) TV Yinka (0.4-1.0m/s) : :MV E Yinka (0.8-1.0m/s)MV A Yinka (0.3-1.0m/s)LVOT Ynika (0.7-1.2m/s) Asc Ao Yinka ( 0.9-1.8m/s) : + + Doppler Measurements \T\ Calculations MV E max yinka: Ao V2 max: LV V1 max: PA V2 max: 50.8 cm/sec 109.9 cm/sec 80.5 cm/sec 81.4 cm/sec MV A max yinka: Ao max P.8 mmHgLV V1 max PG: PA max P.2 cm/sec 2.6 mmHg 2.7 mmHg MV E/A: 0.84 TR max yinka: 264.7 cm/sec TR max P.0 mmHg RAP systole: 5.0 mmHg RVSP(TR): 33.0 mmHg Left Ventricle The left ventricle is normal in size. There is normal left ventricular wall thickness. The left ventricular ejection fraction is normal. There is Doppler evidence for diastolic dysfunction. Ejection Fraction = 75%. No regional wall motion abnormalities noted. Right Ventricle The right ventricle is normal in size and function. Atria The left atrial size is normal. Right atrial size is normal. Mitral Valve The mitral valve is normal in structure and function. There is no evidence of mitral valve prolapse. There is no mitral valve stenosis. There is trace to mild mitral regurgitation. Tricuspid Valve Normal tricuspid valve. There is trace tricuspid regurgitation. Right ventricular systolic pressure is normal. Aortic Valve The aortic valve is normal in structure and function. The aortic valve is trileaflet. The aortic valve opens well. There is no aortic stenosis. There is no aortic insufficiency. Pulmonic Valve The pulmonic valve is normal in structure and function. There is no pulmonic valvular regurgitation. Great Vessels The aortic root is normal size. Pericardium/Pleural There is no pericardial effusion. Conclusion A complete two-dimensional transthoracic echocardiogram was performed (2D, M-mode, Doppler and color flow Doppler). The left ventricular ejection fraction is normal. There is Doppler evidence for diastolic dysfunction. Ejection Fraction = 75%. No regional wall motion abnormalities noted. The right ventricle is normal in size and function. The left atrial size is normal. The mitral valve is normal in structure and function. There is trace to mild mitral regurgitation. Normal tricuspid valve There is trace tricuspid regurgitation. Right ventricular systolic pressure is normal. The aortic valve is normal in structure and function. The aortic valve is trileaflet. The aortic valve opens well. The pulmonic valve is normal in structure and function. The aortic root is normal size. There is no pericardial effusion. No prior echo Final Reading Physician: Dr Samantha Avelar electronically signed on 03/19/2017 03:27 PM Ordering Physician: Avril Birmingham Performed By: Abebe Plata, ELIJAHCS
--- NOTE | 2017-03-19 17:36 | HOSPPROG ---
Hospitalist Progress Note Assessment/Plan: Chest pain - trops neg, EKG non-ischemic. Pt underwent angiogram today, which showed non-flow limiting CAD. -medical management with ASA, statin -consider addition of BB -home in am given late hour of cath Hypertension - Adequate control. -cont losartan Hyperlipidemia - LDL 59, cont statin Hypothyroid - Cont Levothyroxine Anxiety - Cont Wellbutrin Dispo - change to inpatient. I saw patient late in the afternoon, still in PACU after cath. Likely dc in am. Subjective: Pt feels better. Denies CP or SOB. Objective: Vital Signs Temp Pulse Resp BP Pulse Ox 36.6 C 55 L 14 123/81 H 96 03/19/17 07:45 03/19/17 17:05 03/19/17 17:05 03/19/17 17:05 03/19/17 17:05 Laboratory Results 03/19/17 03:51 03/19/17 03:51 03/18/17 03/19/17 03/20/17 05:59 05:59 05:59 Intake Total 1300 Balance 1300 - Physical Exam Constitutional: no apparent distress Eyes: PERRL Ears, Nose, Mouth, Throat: moist mucous membranes Cardiovascular: regular rate and rhythym Respiratory: no respiratory distress, clear to auscultation Gastrointestinal: normoactive bowel sounds, soft, non-tender abdomen Skin: warm, no fluctuance Neurologic: AAOx3 Psychiatric: interacting appropriately ICD10 Worksheet Patient Problems: Problems Problem Status Onset Chest pain Acute
[2017-03-19 19:33] VITALS: RESP 16
[2017-03-19] MEDS ORDERED: ATORVASTATIN CALCIUM 40 MG TAB PO SCH (21:00)
[2017-03-20] MEDS: LEVOTHYROXINE 75 MCG TAB PO SCH (06:02)
[2017-03-20 07:55] VITALS: BP 113/75; PULSE 56; TEMP 98.1; O2SAT 97
[2017-03-20] MEDS: buPROPion SR 150 MG TAB PO SCH (08:12)
[2017-03-20] MEDS: LOSARTAN POTASSIUM 50 MG TAB PO SCH (08:12)
--- NOTE | 2017-03-20 08:14 | HOSPPROG ---
Hospitalist Progress Note Assessment/Plan: #Atypical CP: vasospasm on cath. 40% stenosis OM. Cont ASA, statin. No BB with bradycardia HR 50-60s #Suspected gastritis: rec decrease caffeine, advil intake. Trial Ranitidine #HLD: statin #Controlled HTN: home meds #LE edema: TTE WNL #Disp: DC today Subjective: no CP or SOB Objective: Vital Signs Temp Pulse Resp BP Pulse Ox 36.7 C 56 L 16 113/75 97 03/20/17 07:53 03/20/17 07:53 03/20/17 07:53 03/20/17 07:53 03/20/17 07:53 Laboratory Results 03/19/17 03:51 03/19/17 03:51 03/19/17 03/20/17 03/21/17 05:59 05:59 05:59 Intake Total 1300 630 Balance 1300 630 - Physical Exam Constitutional: no apparent distress Eyes: PERRL Ears, Nose, Mouth, Throat: moist mucous membranes Cardiovascular: regular rate and rhythym, no murmur, rub, or gallop Respiratory: no respiratory distress, no rales or rhonchi Gastrointestinal: normoactive bowel sounds, tenderness (mild eipgastric TTP. no rebound or guarding) Genitourinary: no bladder fullness Skin: warm Musculoskeletal: full muscle strength Neurologic: AAOx3, CN II-XII Intact Psychiatric: interacting appropriately ICD10 Worksheet Patient Problems: Problems Problem Status Onset Chest pain Acute
--- NOTE | 2017-03-20 11:13 | PDCARPN ---
Cardiology Progress Note Chief Complaint: cp Assessment/Plan: Assessment: 56-y/o M with PMH dyslipidemia, htn, admitted with cp starting about 3 weeks ago. #. cp: somewhat concerning for angina as it was relieved with NTG but atypical in that there is not exertional component recommend GI evaluation if not improved by Ranitidine #. htn: on Losartan BP appears controlled #. dyslipidemia: LDL 59/ continue Atorvastatin #. LUCIANA: he reports extensive workup for L>R LUCIANA which started after TKA in 2008 and diagnosed at lymphedema echo looks really quite grossly normal #. elevated lipase: spoke with Dr. Smimons pt advised on reducing caffeine and Ibuprofen intake 03/20/17 11:05 Subjective: No complaints. Objective: Vital Signs (8 Hrs) Temp Pulse Resp BP Pulse Ox 03/20/17 07:53 98.1 F 56 L 16 113/75 97 03/20/17 06:06 97.7 F 51 L 16 116/77 98 Intake/Output (24 Hrs) 03/19/17 03/20/17 03/21/17 05:59 05:59 05:59 Intake Total 630 Balance 630 Intake: Oral (ml) 630 Other: Intake Quantity Yes Sufficient Number of Voids Toilet 2 Result Diagrams: 03/19/17 03:51 03/19/17 03:51 - Physical Exam Constitutional: healthy appearing, no apparent distress Neurologic: AAOx3 Psychiatric: cooperative, interactive ICD10 Worksheet Patient Problems: Problems Problem Status Onset Chest pain Acute
--- NOTE | 2017-03-20 19:01 | GDS ---
[f rep st] DISCHARGE SUMMARY DISCHARGE DIAGNOSES: 1. Chest pain. 2. Controlled hypertension. 3. Dyslipidemia. 4. Left lower extremity edema. 5. Elevated lipase. 6. Suspected gastritis. HISTORY OF PRESENT ILLNESS: A 56-year-old male with history of hypertension, hyperlipidemia, presenting with several weeks of chest pain. It is midsternal and rated as 2 to 4/10. Denies any associated symptoms. It is midsternal. He did notice some improvement with nitroglycerin in the emergency room. He spoke with his warehouse traffic supervisor, Dr. Ledezma, who recommended he come in for an angiogram. HOSPITAL COURSE BY PROBLEM: 1. Atypical chest pain: underwent cardiac catheterization, showed mild irregularities and coronary vasospasm. Proximal 40% stenosis at the origin of the high OM1. Non-flow limiting coronary disease. Also suspect gastritis may be playing a role. He does endorse taking some Advil and drinking up to 5-6 cups of coffee a day with increased stress recently. He will trial ranitidine as an outpatient. If this is not improved, recommend followup with his PCP. 2. Hyperlipidemia: cont statin. 3. Controlled hypertension: continue blood pressure medications. 4. Elevated lipase: patient states drinks 2 drinks a week. He had a normal ultrasound. 5. Left lower extremity edema: which started after TKA in 2008. Echo within normal. Disp: The patient is stable for discharge home. NEW MEDICATIONS: Ranitidine 150 mg p.o. b.i.d. FOLLOWUP: 1. Dr. Ledezma. 2. The patient is to establish a PCP. /[id number]/MODL MTDD
== END 2017-03-20 12:05 | disposition home or self-care (01) ==
LOC: F2W 23:35 → INTOOBSV 03-19 17:33 → OBSVTOIN 03-19 17:33
PROVIDERS: ADMIT Student in an Organized Health Care Education/Training Program; ATTEND Internal Medicine
PROC: 4A023N7 Measurement of Cardiac Sampling and Pressure, Left Heart, Percutaneous Approach (ICD-10-PCS; principal; 2017-03-19)
PROC: B2111ZZ Fluoroscopy of Multiple Coronary Arteries using Low Osmolar Contrast (ICD-10-PCS; principal; 2017-03-19)
PROC: B2121ZZ Fluoroscopy of Single Coronary Artery Bypass Graft using Low Osmolar Contrast (ICD-10-PCS; principal; 2017-03-19)
DX: R07.89 Other chest pain (principal); E78.00 Pure hypercholesterolemia, unspecified; I10 Essential (primary) hypertension; R79.89 Other specified abnormal findings of blood chemistry; R60.0 Localized edema; Z96.652 Presence of left artificial knee joint; F41.9 Anxiety disorder, unspecified
CPT/HCPCS: C1769; G0378; J1644; J2250; J3010; Q9967